=== PATIENT | female | born 1985 | race African-American/Black ===

== ENCOUNTER 2022-03-31 19:50 | Emergency (ER) | payer MEDICAID ==
[~2022-03-31] VITALS: Ht 162.6 cm; Wt 73.0 kg
[2022-04-01] MEDS ORDERED: METH-653 MT (01:34)
[2022-04-01] MEDS ORDERED: HYDR-4001 MT (01:34)
[2022-04-01 02:10] VITALS: BP 120/78
== END 2022-04-01 02:15 | disposition home or self-care (01) ==
LOC: ER 19:50
DX: M54.12 Radiculopathy, cervical region (principal); M54.2 Cervicalgia
CPT/HCPCS: 72040; 73030; 81025; 99284